=== PATIENT | female | born 1950 | race Caucasian/White ===

== ENCOUNTER 2025-05-08 15:07 | Outpatient (CLI) | payer MEDICARE, BC, SELFPAY ==
--- OUTSIDE RECORDS SUMMARY | 2025-05-09 18:00 | XMS_ITS | Clinical Summary ---
Author Organization [facility] Address [address] [place] [address] Care Team Providers Care Pedigree Tracer Name Role Phone [facility], [facility] Care Provider Allergies Active Allergy Reactions Criticality Noted Date Comments Bee Venom 05/20/2020 Morphine And Codeine Medications vitamin C (ASCORBIC ACID) 500 MG tablet Take 500 mg by mouth every evening Active Vitamin D3 (CHOLECALCIFEROL) 25 mcg (1000 units) tablet Take 25 mcg by mouth every morning Active Multiple Vitamins-Minerals (WOMENS MULTI VITAMIN & MINERAL PO) Take 1 chew tab by mouth every morning Active warfarin ANTICOAGULANT (COUMADIN) 3 MG tablet Take 3 mg on Tuesday, Tuesday, Tuesday, Tuesday, Tuesday then take 1.5mg on and Tuesday, then repeat. Active acetaminophen (TYLENOL) 500 MG tablet Take 1,000 mg by mouth every 6 hours as needed for mild pain Active amiodarone (PACERONE) 200 MG tablet Take 200 mg by mouth daily Active carvedilol (COREG) 12.5 MG tablet Take 12.5 mg by mouth 2 times daily (with meals) Active NIFEdipine ER (ADALAT CC) 60 MG 24 hr tablet Take 60 mg by mouth daily Active lisinopril (ZESTRIL) 5 MG tabletIndications: Acute HFrEF (heart failure with reduced ejection fraction) (H) Take 1 tablet (5 mg) by mouth daily 30 tablet 2 Active furosemide (LASIX) 80 MG tabletIndications: Acute HFrEF (heart failure with reduced ejection fraction) (H) Take 1 tablet (80 mg) by mouth daily 30 tablet 2 Active furosemide (LASIX) 40 MG tabletIndications: Acute HFrEF (heart failure with reduced ejection fraction) (H) Take 1 tablet (40 mg) by mouth daily at 4pm 30 tablet 2 Active Active Problems Problem Noted Date Diagnosed Date Acute respiratory failure with hypoxia 2 Acute HFrEF (heart failure with reduced ejection fraction) 10/31/2022 Community acquired pneumonia of right lung, unspecified part of lung 10/16/2022 History of total knee arthroplasty, right 2019 HYPERLIPIDEMIA LDL GOAL <100 09/20/2010 Mixed hyperlipidemia 03/18/2004 Essential hypertension, benign 02/27/2004 Cardiovascular disease 02/27/2004 Overview (08/21/2015): Problem list name updated by automated process. Provider to review Immunizations Immunization Administration Dates Next Due TD,PF 7+ ([facility]) 10/10/1995 Family History Medical History Relation Comments Diabetes Brother Lung Cancer Father Colon Cancer Mother Hypertension Paternal Grandmother Diabetes Sister Relation Status Comments Brother Father Mother Paternal Grandmother Sister Social History Tobacco Use Types Packs/Day Years Used Date Smoking Tobacco: Never Smokeless Tobacco: Never Alcohol Use Standard Drinks/Week Comments Yes 0 (1 standard drink = 0.6 oz pur e alcohol) occ glass of wine AUDIT-C Answer Date Recorded Q1: How often do you have a drink containing alc ohol? Monthly or less 05/21/2020 Q2: How many drinks containi ng alcohol do you have on a typical day when you are drinking? 1 or 2 05/21/2020 Q3: How often do you have si x or more drinks on one occasion? Never 05/21/2020 Adolescent Education Answer Date Record ed Getting School Help Needed Not on file 08/25 Comments No Sex and Gender Information Value Date Recorded Sex Assigned at Not on file Legal Sex Female 3:20 AM BIOMEDICAL ENGINEERING PROFESSOR Gender Identity Not on file Sexual Orientation Not on file Occupation Industry Job Start Date Job End Date Retired Not on file Not on file Not on file Last Filed Vital Signs Vital Sign Reading Time Taken Comments Blood Pressure 129/58 11/02/2022 7:00 AM BIOMEDICAL ENGINEERING PROFESSOR Pulse 69 11/02/2022 7:00 AM BIOMEDICAL ENGINEERING PROFESSOR Temperature 36.6 C (97.9 F) 11/02/2022 7:00 AM BIOMEDICAL ENGINEERING PROFESSOR Respiratory Rate 16 11/02/2022 7:00 AM BIOMEDICAL ENGINEERING PROFESSOR Oxygen Saturation 93% 11/02/2022 7:00 AM BIOMEDICAL ENGINEERING PROFESSOR Inhaled Oxygen Concentration - - Weight 108.4 kg (239 lb) 11/02/2022 10:02 AM BIOMEDICAL ENGINEERING PROFESSOR Height 167.6 cm (5' 6) 10/16/2022 6:18 PM BIOMEDICAL ENGINEERING PROFESSOR Body Mass Index 38.58 10/16/2022 6:18 PM BIOMEDICAL ENGINEERING PROFESSOR Plan of Treatment Health Maintenance Due Date Last Done Comments ADVANCE CARE PLANNING 1950 ANNUAL REVIEW OF HM ORDERS 1950 HF ACTION PLAN 1950 TSH W/FREE T4 REFLEX 1950 HEPATITIS C SCREENING 1966 DTAP/TDAP/TD VACCINE (1 - Tdap) 10/11/1995 10/10/1995, 10/10/1995 PNEUMOCOCCAL VACCINE 50+ YEARS (1 of 1 - PCV) 1998 ZOSTER VACCINE (1 of 2) 1998 FALL RISK ASSESSMENT 2013 MEDICARE ANNUAL WELLNESS VISIT 2013 04/08/2008 DEXA 04/08/2023 04/08/2008 BMP 05/03/2023 11/02/2022, 10/21, 10/31/2022, Additional history exists ALT 10/17/2023 10/17/2022, 03/21, 03/13/2008, Additional history exists LIPID 10/19/2023 10/19/2022, 03/21, 03/13/2008, Additional history exists RSV VACCINE (1 - 1-dose 75+ series) 2023 CBC 10/31/2023 10/31/2022, 1212/2021, 10/20/2022, Additional history exists COVID-19 VACCINE ( - season) 2024 02/20/2021, 01/23/2021 PHQ-2 (once per calendar year) 2024 INFLUENZA VACCINE (Season Ended) 2025 DIABETES SCREENING 11/02/2025 11/02/2022, 1 01/02/2022, 10/31/2022, Additional history exists MAMMO SCREENING Discontinued 04/08/2008 HPV VACCINE Aged Out No longer eligi ble based on patient's age to complete this topic MENINGITIS VACCINE Aged Out No longer eligible based on patient's age to complete this topic Medical Devices Implanted Type Area Temporary Administrative Assistant Device Identifier Shelf Expiration Date Model / Serial / Lot Bone Cement Radiopaque Simplex Hv Full Dose [id number] Implanted:Qty: 2 on 05/21/2020 by Isaiah Chicas MD at [facility] Cement, Bone Right: Knee [employer] [id number] 08/20/2021 [id number] A Imp Comp Femoral Vangard Biom Fixation [id number] Implanted:Qty: 1 on 05/21/2020 by Isaiah Chicas MD at [facility] Total Joint Component /Insert Right: Knee [employer] 12/26/2029 [id number] / / [id number] Imp Insert Tibial Biom Ps Plus Bearing 18x79/83mm [id number] Implanted:Qty: 1 on 05/21/2020 by Isaiah Chicas MD at [facility] Total Joint Component /Insert Right: Knee [employer] [id number] 12/13/2022 [id number] / / [id number] Biomet: Series A Standard Patella 34mm, 8.5mm Implanted:Qty: 1 on 05/21/2020 by Isaiah Chicas MD at [facility] Right: Knee [employer] [id number] 12/03/2024 [id number] / / [id number] Biomet: Ps Open Box Femoral Right. 70mm Implanted:Qty: 1 on 05/21/2020 by Isaiah Chicas MD at [facility] Right: Knee [employer] [id number] 06/26/2029 [id number] / / [id number] Biomet: Fixed Cruciate Tibial Plate. 83mm Implanted:Qty: 1 on 05/21/2020 by Isaiah Chicas MD at [facility] Right: Knee [employer] [id number] 04/14/2028 [id number] / / [id number] Procedures Procedure Name Priority Date/Time Associated Diagnosis Comments BASIC METABOLIC PANEL Routine 11/02/2022 6:40 AM BIOMEDICAL ENGINEERING PROFESSOR CBC WITH PLATELETS & DIFFERENTIAL STAT 10/31/2022 8:15 AM BIOMEDICAL ENGINEERING PROFESSOR LIPID PROFILE Routine 10/19/2022 6:54 AM BIOMEDICAL ENGINEERING PROFESSOR COMPREHENSIVE METABOLIC PANEL STAT 10/17/2022 7:24 AM BIOMEDICAL ENGINEERING PROFESSOR HC MAMMOGRAM, SCREENING BILATERAL Routine 04/08/2008 1:59 PM CDT Radiological Examination, not Elsewhere Classified HC DEXA BONE DENSITY, >=1 SITE, AXIAL SKELETON Routine 04/08/2008 Radiological Examination, not Elsewhere Classified Osteoporosis Screening from Last 3 Months or Most Recently Relevant to Health Maintenance Results * (ABNORMAL) Basic metabolic panel (11/02/2022 6:40 AM BIOMEDICAL ENGINEERING PROFESSOR) Sodium 140 136 - 145 mmol/L 11/02/2022 7:19 AM [facility] Potassium 3.2(L) 3.4 - 5.3 mmol/L 11/02/2022 7:19 AM [facility] Chloride 101 98 - 107 mmol/L 11/02/2022 7:19 AM [facility] Carbon Dioxide (CO2) 28 22 - 29 mmol/L 11/02/2022 7:19 AM [facility] Anion Gap 11 7 - 15 mmol/L 11/02/2022 7:19 AM [facility] Urea Nitrogen 25.1(H) 8.0 - 23.0 mg/dL 11/02/2022 7:19 AM [facility] Creatinine 1.16(H) 0.51 - 0.95 mg/dL 11/02/2022 7:19 AM [facility] Calcium 9.0 8.8 - 10.2 mg/dL 11/02/2022 7:19 AM [facility] Glucose 107(H) 70 - 99 mg/dL 11/02/2022 7:19 AM [facility] GFR Estimate 49(L) >60 mL/min/1.7 3m2 11/02/2022 7:19 AM [facility] Comment:Effective October 222020 eGFRcr in adults is calculated using the 2020 CKD-EPI creatinine equation which includes age and gender (Maricarmen benitez al., NEJM, DOI: 10.1056/HJNYvt1884620) Blood STRUCTURE OF RIGHT HAND / Unknown Venipuncture / Unknown 11/02/2022 6:40 AM BIOMEDICAL ENGINEERING PROFESSOR 11/02/2022 6:52 AM BIOMEDICAL ENGINEERING PROFESSOR us Al Derek Day MD LAB - BLOOD ORDERABLES Fi nal Result LABORATORY [facility] [address] Lab (1st floor, no room number) [place] [address], [facility] [phone] * (ABNORMAL) Lipid Profile (10/19/2022 6:54 AM BIOMEDICAL ENGINEERING PROFESSOR) Cholesterol 193 <200 mg/dL 10/19/2022 1:22 PM BIOMEDICAL ENGINEERING PROFESSOR [facility] Triglycerides 93 <150 mg/dL 10/19/2022 1:22 PM BIOMEDICAL ENGINEERING PROFESSOR [facility] Direct Measure HDL 51 >=50 mg/dL 10/19/2022 1:22 PM BIOMEDICAL ENGINEERING PROFESSOR [facility] LDL Cholesterol Calculated 123(H) <=100 mg/dL 10/19/2022 1:22 PM BIOMEDICAL ENGINEERING PROFESSOR [facility] Non HDL Cholesterol 142(H) <130 mg/dL 10/19/2022 1:22 PM BIOMEDICAL ENGINEERING PROFESSOR [facility] Blood STRUCTURE OF LEFT UPPER LIMB / Unknown Venipuncture / Unknown 10/19/2022 6:54 AM BIOMEDICAL ENGINEERING PROFESSOR 10/19/2022 7:22 AM BIOMEDICAL ENGINEERING PROFESSOR Narrative [facility] - 10/19/2022 1:22 PM BIOMEDICAL ENGINEERING PROFESSOR Cholesterol Desirable: <200 mg/dL Triglycerides Normal: Less than 150 mg/dL Borderline High: 150-199 mg/dL High: 200-499 mg/dL Very High: Greater than or equal to 500 mg/dL Direct Measure HDL Female: Greater than or equal to 50 mg/dL Male: Greater than or equal to 40 mg/dL LDL Cholesterol Desirable: <100mg/dL Above Desirable: 100-129 mg/dL Borderline High: 130-159 mg/dL High: 160-189 mg/dL Very High: >= 190 mg/dL Non HDL Cholesterol Desirable: 130 mg/dL Above Desirable: 130-159 mg/dL Borderline High: 160-189 mg/dL High: 190-219 mg/dL Very High: Greater than or equal to 220 mg/dL us Delvin Flores NP LAB - BLOOD ORDERABLES Fin al Result [facility] [place] [facility] [address] [facility], Room [address] [place] [phone], [facility] [phone] * (ABNORMAL) Comprehensive metabolic panel (10/17/2022 7:24 AM [facility]) Sodium 138 136 - 145 mmol/L 10/17/2022 8:26 AM [facility] Potassium 3.7 3.4 - 5.3 mmol/L 10/17/2022 8:26 AM [facility] Chloride 104 98 - 107 mmol/L 10/17/2022 8:26 AM [facility] Carbon Dioxide (CO2) 24 22 - 29 mmol/L 10/17/2022 8:26 AM [facility] Anion Gap 10 7 - 15 mmol/L 10/17/2022 8:26 AM [facility] Urea Nitrogen 12.5 8.0 - 23.0 mg/dL 10/17/2022 8:26 AM [facility] Creatinine 0.81 0.51 - 0.95 mg/dL 10/17/2022 8:26 AM [facility] Calcium 8.7(L) 8.8 - 10.2 mg/dL 10/17/2022 8:26 AM [facility] Glucose 102(H) 70 - 99 mg/dL 10/17/2022 8:26 AM [facility] Alkaline Phosphatase 79 35 - 104 U/L 10/17/2022 8:26 AM [facility] AST 21 10 - 35 U/L 10/17/2022 8:26 AM [facility] ALT 14 10 - 35 U/L 10/17/2022 8:26 AM [facility] Protein Total 6.2(L) 6.4 - 8.3 g/dL 10/17/2022 8:26 AM [facility] Albumin 3.6 3.5 - 5.2 g/dL 10/17/2022 8:26 AM [facility] Bilirubin Total 0.7 <=1.2 mg/dL 10/17/2022 8:26 AM BIOMEDICAL ENGINEERING PROFESSOR LABORATORY GFR Estimate 76 >60 mL/min/1.7 3m2 10/17/2022 8:26 AM BIOMEDICAL ENGINEERING PROFESSOR LABORATORY Comment:Effective October 222020 eGFRcr in adults is calculated using the 2020 CKD-EPI creatinine equation which includes age and gender (Maricarmen et al., NEJM, DOI: 10.1056/MJCJiz1132601) Blood STRUCTURE OF LEFT HAND / Unknown Venipuncture / Unknown 10/17/2022 7:24 AM BIOMEDICAL ENGINEERING PROFESSOR 10/17/2022 7:59 AM BIOMEDICAL ENGINEERING PROFESSOR Rita King MD LAB - BLOOD ORDERABLES Willow andrade Result LABORATORY [facility] [address] Lab (1st floor, no room number) [place] [address], [facility] [phone] * MAMMOGRAM, SCREENING (04/08/2008 1:59 PM CDT) MAMMOGRAM Anatomical Region Laterality Modality Mammography Impressions 04/08/2008 1:59 PM CDT RADIOLOGIST'S INTERPRETATION: Breast parenchyma: heterogeneously dense IMAGING IMPRESSION: (CATEGORY-0) INCOMPLETE: Need additional imaging evaluation, recommend: additional mammographic views; ultrasound This study was evaluated with the assistance of Computer-Aided Detection. Comments: 04/08/08 Maricarmen Rabago : 46 Approximately 2 cm parenchymal density centrally located within the left breast is noted. I favor this probably represents a benign cyst. However, sonographic confirmation is recommended. There may also be need for mammographic evaluation depending on the sonographic findings. The remainder of the breast tissue bilaterally otherwise appears unremarkable. CONCLUSION: Recommend left breast ultrasound with possible need for diagnostic mammography. Michell Bustamante M.D./yolie D & ATTENTION Radiologist: Michell Bustamante M.D. APR 10 2008 Electronically filed by Yolanda Brasher 04/11/2008 11:11 AM us Bev Aquino MD SPECIAL IMAGING STUDIES Final Result * DEXA,BONE DENSITY,AXIAL SKELETON (04/08/2008) Anatomical Region Laterality Modality Bone Mineral Den sity Impressions 04/08/2008 BONE DENSITOMETRY [address] [address] 04/08/2008 Patient: Maricarmen Rabago Chart: [id number] : 1950 Age: [age] year old Sex: female Referring provider: BEV AQUINO Procedure: Bone density scanning was performed using DEXA technology performed on a marshallindex scanner. Reporting is completed in the form of a T-score. The T-score represents the standard deviation from peak bone mass based on a young healthy adult. Locomotive Crane Engineer performing scan: Melani Hough Reference T-Scores: Normal Greater than -1.0 Osteopenia -1.0 to -2.5 Osteoporosis Less than -2.5 NOF guidelines recommend treatment for patients with a T-score of -1.5 or less with risk factors or -2.0 or less without risk factors. Risk Factors: Surgical menopause age 39 Current Treatment: None listed Findings: Lumbar Spine (L1-L4): T-score -0.6 Degenerative and osteosclerotic changes are present, falsely improving result. Left Femoral Neck: T-score 0.4 Right Femoral Neck: T-score -0.1 Impression: Normal bone mineral density study Dexa scan read and electronically signed by Kevin Renee M.D. Electronically filed by Yolanda Brasher 04/16/2008 6:54 AM Bev Aquino MD SPECIAL IMAGING STUDIES Final Result from Last 3 Months or Most Recently Relevant to Health Maintenance Insurance [employer] [place]IC[place] Advance Directives For more information, please contact: [phone] * Full Code (Latest Code Status on File) Date Activated Date Inactivated Comments 11/02/2022 10:15 AM Question Answer Comments Code status determined by: Discussion with patie nt/ legal decision maker * Full Code Date Activated Date Inactivated Comments 10/31/2022 1:31 PM 11/02/2022 10:15 AM All basic and advanced life-sustaining interventions are performed as appropriate Question Answer Comments Code status determined by: Discussion with patie nt/ legal decision maker * Full Code Date Activated Date Inactivated Comments 10/19/2022 10:39 AM 10/23/2022 3:36 PM All basic and advanced life-sustaining interventions are performed as appropriate Question Answer Comments Code status determined by: Discussion with patie nt/ legal decision maker * Full Code Date Activated Date Inactivated Comments 10/16/2022 11:43 PM 10/19/2022 10:39 AM All basi c and advanced life-sustaining interventions are performed as appropriate Question Answer Comments Code status determined by: Discussion with patie nt/ legal decision maker * Full Code Date Activated Date Inactivated Comments 05/21/2020 11:37 AM 05/23/2020 4:36 PM Question Answer Comments Code status determined by: Unable to det ermine; FULL CODE until documents or legal decision maker available Care Teams Pedigree Tracer Relationship Specialty Start Date End Date [facility], [facility] [address] [place] [address] PCP - General 05/13/20
--- OUTSIDE RECORDS SUMMARY | 2025-05-09 18:00 | XMS_ITS | Encounter Summary ---
Author Organization [facility] Address [address] [place] [id number] Care Team Providers Care Distribution Center Assistant Name Role Phone Huey Hernandez MD Primary Care Provider [phone] [facility], [facility] Care Provider Encounter Details Date Type Department Care Team (Late st Contact Info) Description 04/01/[address] [phone] Huey Hernandez MD [address] [place] [phone] Surgical Consult (Primary Dx) Social History Tobacco Use Types Packs/Day Years Used Date Smoking Tobacco: Never Smokeless Tobacco: Never Alcohol Use Standard Drinks/Week Comments Yes 0 (1 standard drink = 0.6 oz pur e alcohol) occ glass of wine Comments No Sex and Gender Information Value Date Recorded Sex Assigned at Not on file Legal Sex Female 3:20 AM GAS PLANT TECHNICIAN Gender Identity Not on file Sexual Orientation Not on file Occupation Industry Job Start Date Job End Date Retired Not on file Not on file Not on file documented as of this encounter Plan of Treatment Not on file documented as of this encounter Visit Diagnoses Diagnosis Surgical Consult- Primary documented in this encounter Additional Health Concerns Infection Onset Date Last Indicated Resolved Time Rule Out COVID-19 10/16/2022 10/16/2022 10/16/2022 7:11 PM GAS PLANT TECHNICIAN documented as of this encounter Care Teams Distribution Center Assistant Relationship Specialty Start Date End Date Huey Hernandez MD [address] [place] [phone] PCP - General 01/05/02 05/12/20 [facility], [facility] [address] [place] [address] PCP - General 05/13/20 documented as of this encounter
--- OUTSIDE RECORDS SUMMARY | 2025-05-09 18:00 | XMS_ITS | Clinical Summary ---
Author Organization [facility] Address [address] [place] [address] Care Team Providers Care Machine Heel Sprayer Name Role Phone Yolanda Estrada MD Primary Care Provider [phone] Allergies Active Allergy Reactions Criticality Noted Date Comments Codeine Rash,Tachycardia 06/13/2009 Venom-Honey Bee Anaphylaxis High 05/06/2016 Medications diltiazem CD (CARDIZEM CD) 240 mg extended release 24 hr capsule 240 mg once daily. Active cholecalciferol (VITAMIN D3) 1,000 unit tablet 1,000 Units once daily. Active ascorbic acid chewable (VITAMIN C) 500 mg tablet 500 mg once daily. Active Milk Thistle 175 mg tablet 175 mg once daily. Active furosemide (LASIX) 40 mg tablet 40 mg 2 times daily. Active warfarin (COUMADIN) 3 mg tablet 3 mg once daily. jenna 4.5mg on Tuesday and Tuesday, 3 mg all other days Active acetaminophen (TYLENOL) 325 mg tablet 325-650 mg every 4 hours. Active tiZANidine (ZANAFLEX) 2 mg tablet TAKE 1 TABLET BY MOUTH EVERY 8 HOURS NEEDED FOR MUSCLE SPASM 08/05/2020 Active amiodarone (CORDARONE) 200 mg tabletIndication s:Atrial fibrillation, unspecified type (HC) Take 1 Tablet (200 mg) by mouth once daily. 60 Tablet 3 07/09/2021 Active Active Problems Problem Noted Date Diagnosed Date Coronary artery disease 08/13/2019 Atrial fibrillation with rapid ventricular respo nse 08/13/2019 Elevated troponin 08/13/2019 Encounters Date Type Department Care Team Description 05/09/2025 3:00 PM CDT Ancillary Procedure [facility] [place] [facility] [place] [address] [address] [place] [address] Arrived from Last 3 Months Social History Tobacco Use Types Packs/Day Years Used Date Smoking Tobacco: Never Smokeless Tobacco: Never Social Connections Answer Date Recorded Frequency of Communication with Friends and Fami ly Not on file 11/11/2021 Financial Resource Strain Answer Date R ecorded Difficulty of Paying Living Expenses Not on file 11/11/2021 Difficulty of Paying Living Expenses Not on file 11/11/2021 Comments No Sex and Gender Information Value Date Recorded Sex Assigned at Not on file 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 Gender Identity Not on file Sexual Orientation Not on file Obstetrics History Last Filed Vital Signs Vital Sign Reading Time Taken Comments Blood Pressure 145/86 05/28/2021 1:32 PM CDT Pulse 65 05/28/2021 1:32 PM CDT Temperature 36.1 C (97 F) 04/09/2021 3:32 PM CDT Respiratory Rate 16 04/09/2021 3:32 PM CDT Oxygen Saturation 96% 05/28/2021 1:32 PM CDT Inhaled Oxygen Concentration - - Weight 114.8 kg (253 lb) 05/28/2021 1:32 PM CDT Height 165.1 cm (5' 5) 04/09/2021 12:22 PM CDT Body Mass Index 42.1 04/09/2021 12:22 PM CDT Plan of Treatment Health Maintenance Due Date Last Done Comments Tdap 1959 Depression screening for age 12+ 1960 BMI (ht and wt on same day) for age 18+ 1966 Hepatitis C screening for ag e 18-79 1966 Tetanus booster 1968 Pneumococcal series for age 50+ (1 of 1 - PCV) 1998 Zoster (shingles) series for age 50+ (1 of 2) 1998 DEXA/DXA scan for age 65+ 2013 Medicare Wellness for age 65+ 2013 RSV vaccine for adults or (1 - 1-dose 75+ series) 2023 COVID-19 vaccine series ( season) 2024 02/20/2021, 01/23/2021 Influenza Vaccine (Season Ended) 2025 Hepatitis B series for 19+ Aged Out N o longer eligible based on patient's age to complete this topic Procedures Procedure Name Priority Date/Time Associated Diagnosis Comments ECHO TTE COMPLETE WO CONTRAST Routine 05/09/2025 11:08 AM CDT Congestive heart failure (CHF) (HC) from Last 3 Months Results * ECHO TTE COMPLETE WO CONTRAST (05/09/2025 11:08 AM CDT) AORTIC VALVE MEAN PG 21 mmHg EJECTION FRACTION 46 % PEAK TR VELOCITY 3.5 m/s LVEDD 5.3 cm MITRAL VALVE MR ERO 21 mm2 EJECTION FRACTION 45 - 50% Anatomical Region Laterality Modality Ultrasound 05/09/2025 10:3 1 AM CDT Narrative 05/09/2025 12:17 PM CDT ECHOCARDIOGRAM MARICARMEN ESTEBAN : 1950 74 years Study Date: 05/09/2025 10:31:40 AM Gender: F BP: 149/112 mmHg Height: 165.00 cm BSA: 2.19 m Weight: 115.00 kg Tech: MO Referring MD: SHARON TURPIN Site: [facility] Reading Location: [facility] Patient Location: Inpatient. Procedure: 2D, Color Doppler and Spectral Doppler. Indication for study: Congestive heart failure (CHF) (HC) Cardiac Rhythm: Atrial fibrillation.Study quality: Fair. Imaging limitations: This study was subject to imaging limitations due to body habitus. Final Impressions: 1. Normal LV size, borderline wall thickness, mildly reduced global systolic function with an estimated EF of 45 - 50%. Somewhat poor endocardial border definition makes accurate assessment of LVEF and wall motion difficult. [place], apical inferior and septal segments appear akinetic. Basal to mid inferior and inferoseptum hypokinetic. 2. Right ventricular cavity size is mildly enlarged, global systolic RV function is normal. 3. The aortic valve is calcified, mild to moderate stenosis and mild regurgitation. 4. Severe bi atrial enlargement. 5. Moderate to severe mitral regurgitation. 6. Severe tricuspid regurgitation. 7. Severely increased estimated pulmonary pressures by tricuspid regurgitation velocity and right atrial pressure (48 mmHg plus RAP). 8. The inferior vena cava is dilated, respiratory size variation less than 50%. Comparison Compared to prior exam of 03/20/2024: LVEF mildly reduced, significant MR and TR present, progression of aortic valve disease. Chamber Sizes and Function Normal left ventricular size, borderline wall thickness, mildly reduced global systolic function with an estimated EF of 45 - 50%. Left atrial size is severely enlarged. Right ventricular cavity size is mildly enlarged, global systolic RV function is normal. RV wall thickness is normal. The right atrium is severely enlarged. Right atrial volume index is 80 ml/m . Right atrial area is 38 cm . The pulmonary artery is of normal size and origin. The sinus of Valsalva is normal sized. The ascending aorta is normal sized. The apical septum segment and apical inferior segment are akinetic. The inferior septum is hypokinetic. Valves, RV Pressures and Diastolic Function The aortic valve is calcified and not well visualized , mild to moderate stenosis and mild regurgitation. The mitral valve is normal in structure, moderate to severe mitral regurgitation. Moderate mitral annular calcification is present. Indeterminate pattern of LV diastolic filling. The tricuspid valve is normal in structure, severe tricuspid regurgitation. The tricuspid regurgitant velocity is 3.5 m/s, the estimated right ventricular systolic pressure is 48 mmHg plus right atrial pressure. There is severely increased estimated pulmonary pressure by tricuspid regurgitation velocity and right atrial pressure. The pulmonic valve is not well visualized. Mild pulmonary regurgitation. Masses, Effusion, Shunts There is no pericardial effusion. The inferior vena cava is dilated, respiratory size variation less than 50%. No left to right shunting was detected by limited color flow Doppler interrogation of the interatrial septum. MEASUREMENTS AND CALCULATIONS 2-D Measurements and LV Function: LVID (d) 5.3 cm LV FS% (2D) 39 % LVID (s) 3.2 cm LVOT diameter 2.2 cm IVS (d) 1.1 cm HR 92 bpm LVPW (d) 1.1 cm LA Vol index 59 ml/m2 Ao Sinus 3.3 cm RA Vol index 80 ml/m2 Ao Sinus ULN 3.8 cm * RA area 38 cm Asc Ao 3.6 cm RV Basal Diam 4.8 cm Asc Ao ULN 4.1 cm * RV Mid Diam 3.8 cm LA 6.3 cm * Input BSA outside of range, reported values correspond to BSA = 1.9 Diastology: Mitral Tissue Doppler E Peak 1.6 m/s e', Septum 0.06 m/s DT 192 msec e', Lateral 0.10 m/s E/e' Average 19.92 Aortic Valve: Vmax 2.9 m/s WILBERTO (V) 1.51 cm AI P 1/2 475 msec VTI 0.54 m WILBERTO (I) 1.44 cm AI Vol 5 ml LVOT V max 1.1 m/s Max PG 34 mmHg LVOT VTI 0.20 m Mean PG 21 mmHg SV 78 ml Dim Index 0.37 SV index 36 ml/m CO 7.2 l/min AV Ejection Time 0.25 sec CI 3.3 l/min/m AV Flow Rate 307 ml/s Mitral Valve: MVA 4.0 cm MR ERO 0.21 cm MV P 1/2 56 msec MR Vol. 28 ml MR TVI 1.33 m Tricuspid Valve and estimated PA pressures: TR Vmax 3.5 m/s TAPSE 1.9 cm TR maxG 48 mmHg . This study was interpreted by an [facility] accredited facility. CC: [facility]. Final Procedure Note Magdi Marks MD - 05/09/2025 ECHOCARDIOGRAM MARICARMEN ESTEBAN : 1950 74 years Study Date: 05/09/2025 10:31:40 AM Gender: F BP: 149/112 mmHg Height: 165.00 cm BSA: 2.19 m Weight: 115.00 kg Tech: MO Referring MD: SHARON TURPIN Site: [facility] Reading Location: [facility] Patient Location: Inpatient. Procedure: 2D, Color Doppler and Spectral Doppler. Indication for study: Congestive heart failure (CHF) (HC) Cardiac Rhythm: Atrial fibrillation.Study quality: Fair. Imaging limitations: This study was subject to imaging limitations due tobody habitus. Final Impressions: 1. Normal LV size, borderline wall thickness, mildly reduced globalsystolic function with an estimated EF of 45 - 50%. Somewhat poorendocardial border definition makes accurate assessment of LVEF and wallmotion difficult. [place], apical inferior and septal segments appearakinetic. Basal to mid inferior and inferoseptum hypokinetic. 2. Right ventricular cavity size is mildly enlarged, global systolic RVfunction is normal. 3. The aortic valve is calcified, mild to moderate stenosis and mildregurgitation. 4. Severe bi atrial enlargement. 5. Moderate to severe mitral regurgitation. 6. Severe tricuspid regurgitation. 7. Severely increased estimated pulmonary pressures by tricuspidregurgitation velocity and right atrial pressure (48 mmHg plus RAP). 8. The inferior vena cava is dilated, respiratory size variation lessthan 50%. Comparison Compared to prior exam of 03/20/2024: LVEF mildly reduced, significant MR and TR present, progression of aorticvalve disease. Chamber Sizes and Function Normal left ventricular size, borderline wall thickness, mildly reducedglobal systolic function with an estimated EF of 45 - 50%. Left atrialsize is severely enlarged. Right ventricular cavity size is mildlyenlarged, global systolic RV function is normal. RV wall thickness isnormal. The right atrium is severely enlarged. Right atrial volume indexis 80 ml/m . Right atrial area is 38 cm . The pulmonary artery is ofnormal size and origin. The sinus of Valsalva is normal sized. Theascending aorta is normal sized. The apical septum segment and apicalinferior segment are akinetic. The inferior septum is hypokinetic. Valves, RV Pressures and Diastolic Function The aortic valve is calcified and not well visualized , mild to moderatestenosis and mild regurgitation. The mitral valve is normal in structure,moderate to severe mitral regurgitation. Moderate mitral annularcalcification is present. Indeterminate pattern of LV diastolic filling.The tricuspid valve is normal in structure, severe tricuspidregurgitation. The tricuspid regurgitant velocity is 3.5 m/s, theestimated right ventricular systolic pressure is 48 mmHg plus right atrialpressure. There is severely increased estimated pulmonary pressure bytricuspid regurgitation velocity and right atrial pressure. The pulmonicvalve is not well visualized. Mild pulmonary regurgitation. Masses, Effusion, Shunts There is no pericardial effusion. The inferior vena cava is dilated,respiratory size variation less than 50%. No left to right shunting wasdetected by limited color flow Doppler interrogation of the interatrialseptum. MEASUREMENTS AND CALCULATIONS 2-D Measurements and LV Function: LVID (d) 5.3 cm LV FS% (2D) 39% LVID (s) 3.2 cm LVOT diameter2.2 cm IVS (d) 1.1 cm HR 92bpm LVPW (d) 1.1 cm LA Vol index 59ml/m2 Ao Sinus 3.3 cm RA Vol index 80ml/m2 Ao Sinus ULN 3.8 cm * RA area 38cm Asc Ao 3.6 cm RV Basal Diam4.8 cm Asc Ao ULN 4.1 cm * RV Mid Diam3.8 cm LA 6.3 cm * Input BSA outside of range, reported values correspond to BSA = 1.9 Diastology: Mitral Tissue Doppler E Peak 1.6 m/s e', Septum 0.06 m/s DT 192 msec e', Lateral 0.10 m/s E/e' Average 19.92 Aortic Valve: Vmax 2.9 m/s WILBERTO (V) 1.51 cm AI P 1/2 475 msec VTI 0.54 m WILBERTO (I) 1.44 cm AI Vol 5 ml LVOT V max 1.1 m/s Max PG 34 mmHg LVOT VTI 0.20 m Mean PG 21 mmHg SV 78 ml Dim Index 0.37 SV index 36 ml/m CO 7.2 l/min AV Ejection Time 0.25 sec CI 3.3 l/min/m AV Flow Rate 307 ml/s Mitral Valve: MVA 4.0 cm MR ERO 0.21 cm MV P 1/2 56 msec MR Vol. 28 ml MR TVI 1.33 m Tricuspid Valve and estimated PA pressures: TR Vmax 3.5 m/s TAPSE 1.9 cm TR maxG 48 mmHg . This study was interpreted by an [facility] accredited facility. CC: [facility]. Final us Sharon Turpin MD ECHO ORD Final Result from Last 3 Months Insurance BLUE [place]OSS [place] BLUE MR PB ONLY MEDICARE PART B HB ONLY [place] BLUE HB ONLY MEDICARE PPS Advance Directives * Full Code (Latest Code Status on File) Date Activated Date Inactivated Comments 04/09/2021 2:19 PM 04/09/2021 6:07 PM Question Answer Comments Code Status Discussion: Not Discussed Care Teams Machine Heel Sprayer Relationship Specialty Start Date End Date Yolanda Estrada MD [address] [place] [id number] PCP - General Family Practice 05/26/20
--- OUTSIDE RECORDS SUMMARY | 2025-05-10 00:17 | XMS_ITS | Clinical Summary ---
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 Procedure: 2D, Color Doppler [...] assessment of LVEF and wall motion difficult. [place], apical inferior and septal segments appear akinetic. [...] . This study was interpreted by an [facility] accredited facility. CC: [facility]. Final Procedure Note Magdi Marks MD - 05/09/2025 ECHOCARDIOGRAM MARICARMEN ESTEBAN : 1950 74 years Study Date: 05/09/2025 10:31:40 AM Gender: F BP: 149/112 mmHg Height: 165.00 cm BSA: 2.19 m Weight: 115.00 kg Tech: MO Referring MD: SHARON TURPIN Site: [facility] Reading Location: [facility] Patient Location: Inpatient. Procedure: 2D, Color Doppler [...] accurate assessment of LVEF and wallmotion difficult. [place], apical inferior and septal segments appearakinetic. Basal [...] . This study was interpreted by an [facility] accredited facility. CC: [facility]. Final us Sharon Turpin MD ECHO ORD Final Result from Last 3 Months Insurance BLUE [place] BLUE MR PB ONLY MEDICARE PART B HB ONLY [place] BLUE HB ONLY MEDICARE PPS Advance Directives * Full Code (Latest Code Status on File) Date Activated Date Inactivated Comments 04/09/2021 2:19 PM 04/09/2021 6:07 PM Question Answer Comments Code Status Discussion: Not Discussed Care Teams Stock Wetter Relationship Specialty Start Date End Date Yolanda Estrada MD [address] [place] [phone] PCP - General Family Practice 05/26/20
--- OUTSIDE RECORDS SUMMARY | 2025-05-10 00:18 | XMS_ITS | Encounter Summary ---
Author Organization [facility] Address [address] [place] [address] Care Team Providers Care Pharmacist Intern Name Role Phone Huey Hernandez MD Primary Care Provider [phone] [facility], [facility] Care Provider Encounter Details Date Type Department Care Team (Late st Contact Info) Description 04/01/[address] [phone] Huey Hernandez MD [address] [place] [phone] Surgical Consult (Primary Dx) Social History Tobacco Use Types Packs/Day Years Used Date Smoking Tobacco: Never Smokeless Tobacco: Never Alcohol Use Standard Drinks/Week Comments Yes 0 (1 standard drink = 0.6 oz pur e alcohol) occ glass of wine Comments No Sex and Gender Information Value Date Recorded Sex Assigned at Not on file Legal Sex Female 3:20 AM DRAW HAND Gender Identity Not on file Sexual Orientation [...] Out COVID-19 10/16/2022 10/16/2022 10/16/2022 7:11 PM DRAW HAND documented as of this encounter Care Teams Pharmacist Intern Relationship Specialty Start Date End Date Huey Hernandez MD [address] [place] [phone] PCP - General 01/05/02 05/12/20 [facility], [facility] [address] [place] [address] PCP - General 05/13/20 documented as of this encounter
--- OUTSIDE RECORDS SUMMARY | 2025-05-10 00:18 | XMS_ITS | Clinical Summary ---
Author Organization [facility] Address [address] [place] [id number] Care Team Providers Care Fraud Analyst Name Role Phone [facility], [facility] [place] Care Provider Allergies Active Allergy Reactions Criticality [...] Immunization Administration Dates Next Due TD,PF 7+ ([facility]) 10/10/1995 Family History Medical History Relation Comments [...] on file Legal Sex Female 3:20 AM PSYCHOLOGIST RESEARCH ASSISTANT Gender Identity Not on file Sexual Orientation Not on file Occupation Industry Job Start Date Job End Date Retired Not on file Not on file Not on file Last Filed Vital Signs Vital Sign Reading Time Taken Comments Blood Pressure 129/58 11/02/2022 7:00 AM PSYCHOLOGIST RESEARCH ASSISTANT Pulse 69 11/02/2022 7:00 AM PSYCHOLOGIST RESEARCH ASSISTANT Temperature 36.6 C (97.9 F) 11/02/2022 7:00 AM PSYCHOLOGIST RESEARCH ASSISTANT Respiratory Rate 16 11/02/2022 7:00 AM PSYCHOLOGIST RESEARCH ASSISTANT Oxygen Saturation 93% 11/02/2022 7:00 AM PSYCHOLOGIST RESEARCH ASSISTANT Inhaled Oxygen Concentration - - Weight 108.4 kg (239 lb) 11/02/2022 10:02 AM PSYCHOLOGIST RESEARCH ASSISTANT Height 167.6 cm (5' 6) 10/16/2022 6:18 PM PSYCHOLOGIST RESEARCH ASSISTANT Body Mass Index 38.58 10/16/2022 6:18 PM PSYCHOLOGIST RESEARCH ASSISTANT Plan of Treatment Health Maintenance Due Date [...] this topic Medical Devices Implanted Type Area Rate Marker Device Identifier Shelf Expiration Date Model / Serial / Lot Bone Cement Radiopaque Simplex Hv Full Dose 6194-1-001 Implanted:Qty: 2 on 05/21/2020 by Isaiah Chicas MD at Cement, Bone Right: Knee [employer] [id number] 08/20/2021 6194-1-00 [id number] A Imp Comp Femoral [employer] Fixation [id number] Implanted:Qty: 1 on 05/21/2020 by Isaiah Chicas MD at Total Joint Component /Insert Right: Knee [employer] 12/26/2029 [id number] / / [id number] Imp Insert Tibial Biom Ps Plus Bearing 18x79/83mm [id number] Implanted:Qty: 1 on 05/21/2020 by Isaiah Chicas MD at [employer] Joint Component /Insert Right: Knee [employer] [id number] 12/13/2022 [id number] / / [id number] Biomet: Series A Standard Patella 34mm, 8.5mm Implanted:Qty: 1 on 05/21/2020 by Isaiah Chicas MD at Right: Knee [employer] [id number] 12/03/2024 [id number] / / [id number] Biomet: Ps Open Box Femoral Right. 70mm Implanted:Qty: 1 on 05/21/2020 by Isaiah Chicas MD at Right: Knee [employer] [id number] 06/26/2029 [id number] / / [id number] Biomet: Fixed Cruciate Tibial Plate. 83mm Implanted:Qty: 1 on 05/21/2020 by Isaiah Chicas MD at Right: Knee [employer] [id number] 04/14/2028 [id number] / / [id number] Procedures Procedure Name Priority Date/Time Associated Diagnosis Comments BASIC METABOLIC PANEL Routine 11/02/2022 6:40 AM PSYCHOLOGIST RESEARCH ASSISTANT CBC WITH PLATELETS & DIFFERENTIAL STAT 10/31/2022 8:15 AM PSYCHOLOGIST RESEARCH ASSISTANT LIPID PROFILE Routine 10/19/2022 6:54 AM PSYCHOLOGIST RESEARCH ASSISTANT COMPREHENSIVE METABOLIC PANEL STAT 10/17/2022 7:24 AM PSYCHOLOGIST RESEARCH ASSISTANT HC MAMMOGRAM, SCREENING BILATERAL Routine 04/08/2008 1:59 PM CDT Radiological Examination, not Elsewhere Classified HC DEXA BONE DENSITY, >=1 SITE, AXIAL SKELETON Routine 04/08/2008 Radiological Examination, not Elsewhere Classified Osteoporosis Screening from Last 3 Months or Most Recently Relevant to Health Maintenance Results * (ABNORMAL) Basic metabolic panel (11/02/2022 6:40 AM PSYCHOLOGIST RESEARCH ASSISTANT) Sodium 140 136 - 145 mmol/L 11/02/2022 7:[address] [facility] Potassium 3.2(L) 3.4 - 5.3 mmol/L 11/02/2022 7:[address] [facility] Chloride 101 98 - 107 mmol/L 11/02/2022 7:[address] [facility] Carbon Dioxide (CO2) 28 22 - 29 mmol/L 11/02/2022 7:[address] [facility] Anion Gap 11 7 - 15 mmol/L 11/02/2022 7:[address] [facility] Urea Nitrogen 25.1(H) 8.0 - 23.0 mg/dL 11/02/2022 7:[address] [facility] Creatinine 1.16(H) 0.51 - 0.95 mg/dL 11/02/2022 7:[address] [facility] Calcium 9.0 8.8 - 10.2 mg/dL 11/02/2022 7:[address] [facility] Glucose 107(H) 70 - 99 mg/dL 11/02/2022 7:[address] [facility] GFR Estimate 49(L) >60 mL/min/1.7 3m2 11/02/2022 7:[address] [facility] Comment:Effective October 222020 eGFRcr in adults is calculated using the 2020 CKD-EPI creatinine equation which includes age and gender (Maricarmen benitez al., NEJM, DOI: 10.1056/FOZXji3996014) Blood STRUCTURE OF RIGHT HAND / Unknown Venipuncture / Unknown 11/02/2022 6:40 AM PSYCHOLOGIST RESEARCH ASSISTANT 11/02/2022 6:52 AM PSYCHOLOGIST RESEARCH ASSISTANT us Al Derek Day MD LAB - BLOOD ORDERABLES Fi nal Result LABORATORY [facility] [address] Lab (1st floor, no room number) [place] [address], [facility] [phone] * (ABNORMAL) Lipid Profile (10/19/2022 6:54 AM PSYCHOLOGIST RESEARCH ASSISTANT) Cholesterol 193 <200 mg/dL 10/19/2022 1:22 PM PSYCHOLOGIST RESEARCH ASSISTANT [facility] Triglycerides 93 <150 mg/dL 10/19/2022 1:22 PM PSYCHOLOGIST RESEARCH ASSISTANT [facility] Direct Measure HDL 51 >=50 mg/dL 10/19/2022 1:22 PM PSYCHOLOGIST RESEARCH ASSISTANT [facility] LDL Cholesterol Calculated 123(H) <=100 mg/dL 10/19/2022 1:22 PM PSYCHOLOGIST RESEARCH ASSISTANT [facility] Non HDL Cholesterol 142(H) <130 mg/dL 10/19/2022 1:22 PM PSYCHOLOGIST RESEARCH ASSISTANT [facility] Blood STRUCTURE OF LEFT UPPER LIMB / Unknown Venipuncture / Unknown 10/19/2022 6:54 AM PSYCHOLOGIST RESEARCH ASSISTANT 10/19/2022 7:22 AM PSYCHOLOGIST RESEARCH ASSISTANT Narrative [facility] - 10/19/2022 1:22 PM PSYCHOLOGIST RESEARCH ASSISTANT Cholesterol Desirable: <200 mg/dL Triglycerides Normal: Less [...] BLOOD ORDERABLES Fin al Result [facility] [place] [facility] [address] [facility], Room [address] [place] [id number], [facility] [phone] * (ABNORMAL) Comprehensive metabolic panel (10/17/2022 7:24 AM [facility]) Sodium 138 136 - 145 mmol/L 10/17/2022 8:[address] [facility] Potassium 3.7 3.4 - 5.3 mmol/L 10/17/2022 8:[address] [facility] Chloride 104 98 - 107 mmol/L 10/17/2022 8:[address] [facility] Carbon Dioxide (CO2) 24 22 - 29 mmol/L 10/17/2022 8:[address] [facility] Anion Gap 10 7 - 15 mmol/L 10/17/2022 8:[address] [facility] Urea Nitrogen 12.5 8.0 - 23.0 mg/dL 10/17/2022 8:[address] [facility] Creatinine 0.81 0.51 - 0.95 mg/dL 10/17/2022 8:[address] [facility] Calcium 8.7(L) 8.8 - 10.2 mg/dL 10/17/2022 8:[address] [facility] Glucose 102(H) 70 - 99 mg/dL 10/17/2022 8:[address] [facility] Alkaline Phosphatase 79 35 - 104 U/L 10/17/2022 8:[address] [facility] AST 21 10 - 35 U/L 10/17/2022 8:[address] [facility] ALT 14 10 - 35 U/L 10/17/2022 8:[address] [facility] Protein Total 6.2(L) 6.4 - 8.3 g/dL 10/17/2022 8:[address] [facility] Albumin 3.6 3.5 - 5.2 g/dL 10/17/2022 8:[address] [facility] Bilirubin Total 0.7 <=1.2 mg/dL 10/17/2022 8:26 AM PSYCHOLOGIST RESEARCH ASSISTANT LABORATORY GFR Estimate 76 >60 mL/min/1.7 3m2 10/17/2022 8:26 AM PSYCHOLOGIST RESEARCH ASSISTANT LABORATORY Comment:Effective October 222020 eGFRcr in adults is calculated using the 2020 CKD-EPI creatinine equation which includes age and gender (Maricarmen et al., NEJM, DOI: 10.1056/HAREmz5480672) Blood STRUCTURE OF LEFT HAND / Unknown Venipuncture / Unknown 10/17/2022 7:24 AM PSYCHOLOGIST RESEARCH ASSISTANT 10/17/2022 7:59 AM PSYCHOLOGIST RESEARCH ASSISTANT Rita King MD LAB - BLOOD ORDERABLES Willow andrade Result LABORATORY [facility] [address] Lab (1st floor, no room number) [place] [address], [facility] [phone] * MAMMOGRAM, SCREENING (04/08/2008 1:59 PM CDT) [...] Mineral Den sity Impressions 04/08/2008 BONE DENSITOMETRY [address] [address] 04/08/2008 Patient: Maricarmen Rabago Chart: [id number] : 1950 Age: [age] year old Sex: female Referring provider: BEV AQUINO Procedure: Bone density scanning was performed using DEXA technology performed on a en-Gauge scanner. Reporting is completed in the form of a T-score. The T-score represents the standard deviation from peak bone mass based on a young healthy adult. Tunnel Elastic Operator Zigzag performing scan: Melani Hough Reference T-Scores: Normal [...] Recently Relevant to Health Maintenance Insurance [employer] [place] [employer]IC[employer] Advance Directives For more information, please contact: [phone] * Full Code (Latest Code Status on [...] or legal decision maker available Care Teams Fraud Analyst Relationship Specialty Start Date End Date [facility], [facility] [address] [place] [address] PCP - General 05/13/20
== END 2025-05-08 15:08 | disposition home or self-care (01) ==
PROVIDERS: Visit Provider Emergency Medicine
DX: R10.9 Unspecified abdominal pain (principal)
CPT/HCPCS: A0425; A0427